=== PATIENT | male | born 1955 | race Caucasian/White ===

== ENCOUNTER 2019-07-25 08:40 | Outpatient (CLI) | payer BC ==
--- NOTE | 2019-07-25 14:50 | MRI ---
MRI OF THE PROSTATE WITHOUT AND WITH CONTRAST: 07/25/19 COMPARISON: None. HISTORY: Prostate cancer. TECHNIQUE: Multiplanar and multisequence MRI images were obtained in a prostate without and with IV contrast. FINDINGS: There is moderate hypertrophy of the central gland consistent with BPH. Prostate volume is estimated at 40 mL. In the base of the prostate, predominantly in the left gland but extending across the midline, there is a low T2 signal lesion measuring 2.6 cm in greatest dimension. This demonstrates areas of restrict ed diffusion. This involves the central gland and peripheral zone of the prostate. This also involves the takeoff of the seminal vesicles with low T2 signal in the base of the bilateral seminal vesicles . There is apparent restricted diffusion in the left seminal vesicle. The lesion abuts the prostate c apsule along the entire left aspect of the prostate near the base. The left neurovascular bundle is i n the near vicinity of the lesion described. No other suspicious low T2 signal lesions are seen in the prostate. No other areas of restricted diff usion or low signal on the ADC map are seen. No pelvic adenopathy is seen. Scattered diverticula are seen in the colon. The marrow is heterogeneous in appearance. No obvious enhancing masses are seen in the marrow. IMPRESSION: PI-RADS category V - high likelihood that a clinically significant cancer is present. There is also heterogeneity of the bone marrow but no obvious enhancement. However, a bone scan is recommended to e valuate for osseous metastatic disease. POS: EAA
== END 2019-07-25 08:41 | disposition home or self-care (01) ==
LOC: TBSIIMAG 08:40
DX: C61 Malignant neoplasm of prostate (principal)
CPT/HCPCS: 72197; 82565

== ENCOUNTER 2021-04-06 10:48 | Outpatient (CLI) | payer BC ==
[2021-04-06 11:13] LABS: Estimated GFR-MDRD - POC Greater than 90
[2021-04-06] MEDS ORDERED: Iopamidol 370 76% 100 ML VIAL ONE (12:20)
== END 2021-04-06 10:49 | disposition home or self-care (01) ==
LOC: NM 10:48
PROVIDERS: ATTEND Radiology Radiation Oncology
DX: C61 Malignant neoplasm of prostate (principal); R91.8 Other nonspecific abnormal finding of lung field; K76.0 Fatty (change of) liver, not elsewhere classified
CPT/HCPCS: 71260; 74177; 78306; 82565; A9503; Q9967